=== PATIENT | female | born 1960 | race Caucasian/White ===

== ENCOUNTER 2023-12-30 00:50 | Emergency (ER) | payer SELFPAY ==
--- NOTE | ~2023-12-30 | XR_ITS ---
Clinical Indication: Rapid heart rate PA and lateral views of the chest: Comparison: None Findings: The lungs are clear, without evidence of focal consolidation or pleural effusion. Cardiome diastinal silhouette is within normal limits. Bones and soft tissues are unremarkable. Impression: Normal chest. Reviewed, dictated and finalized at location . Impression: Normal chest.
--- NOTE | 2023-12-30 00:53 | ECG_ITS ---
Test Date: 2023-12-30 01:00:05 Measurements Intervals [place] Rate: 87 P: 45 ID: [id number] QRS: 19 QRSD: 73 T: 59 QT: 353 QTc: 427 Interpretive Statements SINUS RHYTHM WITH FIRST DEGREE AV BLOCK LOW QRS VOLTAGE IN PRECORDIAL LEADS [QRS DEFLECTION < 1.0 mV IN CHEST LEADS] NONSPECIFIC ST & T-WAVE ABNORMALITY No previous ECG available for comparison Electronically Signed On 12-30-2023 11:42:39 CDT by Caden Aguilar M.D.
[2023-12-30 02:04] LABS: Basophils Percent Auto 0.5 % (0.2-1.2); Eosinophils Absolute Auto 0.2 K/mm3 (0-0.3); Eosinophils Percent Auto 2.5 % (0-4.4); Hematocrit 28.3 % (37.0-47.0); Hemoglobin 9.3 g/dL (12.0-15.0); Immature Granulocyte Absolute 0.03 K/mm3 (0.00-0.031); Immature Granulocyte Percent A 0.4 % (0-0.5); Lymphocytes Absolute Auto 2.18 K/mm3 (0.9-3.2); Lymphocytes Percent Auto 28.7 % (18.3-44.2); Mean Corpuscular HGB Conc 32.9 g/dl (32-36); Mean Corpuscular Hemoglobin 27.2 pg (26-34); Mean Corpuscular Volume 82.7 fl (80-100); Mean Platelet Volume 9.7 fl (7.4-10.4); Monocytes Absolute Auto 0.7 K/mm3 (0.1-0.6); Monocytes Percent Auto 8.8 % (2.6-8.5); Neutrophils Absolute Auto 4.5 K/mm3 (1.3-6.7); Neutrophils Percent Auto 59.1 % (45.5-73.1); Platelet Count Result 215 k/mm3 (150-375); Red Blood Count 3.42 M/mm3 (4.2-5.4); Red Cell Distribution Width 14.9 % (11.5-14.5); White Blood Count 7.6 K/mm3 (4.5-10.0)
[2023-12-30 02:16] LABS: Alanine Aminotransferase 36 U/L (6-35); Albumin Level 4.4 g/dL (3.5-5.1); Alkaline Phosphatase 118 U/L (38-126); Anion Gap 9 mmol/L (4-12); Aspartate Amino Transferase 47 U/L (14-36); Bilirubin,Total 0.4 mg/dL (0.2-1.3); Blood Urea Nitrogen 15 mg/dL (7-17); Calcium 9.4 mg/dL (8.4-10.2); Carbon Dioxide 28 mmol/L (22-30); Chloride 103 mmol/L (98-107); Estimated CRCL calculation 59 ml/min; Estimated Glomerular Filt Rate > 60; Glucose 119 mg/dL (65-110); INR 0.9; Lipase 96 U/L (23-300); Potassium 3.7 mmol/L (3.4-5.0); Prothrombin Time 12.5 Seconds (11.1-14.7); Sodium 140 mmol/L (137-145)
[2023-12-30 02:24] LABS: Troponin I < 0.012 ng/mL (0.000-0.034)
--- NOTE | 2023-12-30 04:29 | ECG_ITS ---
Test Date: 2023-12-30 04:49:24 Measurements Intervals [place] Rate: 73 P: 40 MN: 184 QRS: 19 QRSD: 91 T: 22 QT: 404 QTc: 446 Interpretive Statements SINUS RHYTHM LOW QRS VOLTAGE IN PRECORDIAL LEADS [QRS DEFLECTION < 1.0 mV IN CHEST LEADS] Compared to ECG 12/30/2023 01:00:05 First degree AV block no longer present T-wave abnormality no longer present Electronically Signed On 12-30-2023 11:44:22 CDT by Caden Aguilar M.D.
[2023-12-30 05:15] LABS: Troponin I < 0.012 ng/mL (0.000-0.034)
[2023-12-30 06:37] VITALS: BP 104/82; PULSE 70; RESP 15; O2SAT 100
--- NOTE | 2023-12-30 07:22 | PC.NURSE ---
Pt spouse approached nurse station and states Get her IV out we will go somewhere else. Pt declined to be seen by provider due to wait time. EDP made aware and stated will see the pt as soon as he can, with shift change there are a few to be seen. Family and pt updated, unwilling to wait for day shift provider. IV removed. Pt exited ED in NAD w/ spouse.
== END 2023-12-30 07:10 | disposition left against medical advice (07) ==
LOC: ANHED 07:29
PROVIDERS: Emergency Provider Emergency Medicine
DX: R51.9 Headache, unspecified (principal); R05.9 Cough, unspecified; R00.0 Tachycardia, unspecified
CPT/HCPCS: 36415; 71046; 80053; 83690; 84484; 85025; 85610; 85730; 93005; 99199